=== PATIENT | female | born 1935 | race Caucasian/White ===

== ENCOUNTER → 2018-09-05 15:27 | Outpatient (CLI) | payer MEDICARE, SELFPAY ==
--- NOTE | 2018-09-05 | DI.CT.S_ITS ---
PROCEDURE: CT ABDOMEN WO CON INDICATIONS: Other specified diseases of pancreas, abnormal weight loss TECHNIQUE: After the administration of oral contrast, 5 mm thick sections acquired from the diaphragms to the iliac crests. 5 mm coronal and sagittal reformats were then performed. For radiation dose reduction, the following was used: automated exposure control, adjustment of mA and/or kV according to patient size. COMPARISON: [facility], CT, ABDOMEN WITHOUT CONTRAST, 09/23/2016, 12:34. FINDINGS: Image quality: Significantly degraded by absence of both oral and intravenous contrast. Lung bases: Lung bases are clear. Heart size is normal. Solid organs: Liver is normal in size. Gallbladder appears normal. Pancreas is normal in contours. Spleen is normal in size. No adrenal nodules. Both kidneys are normal in size, without hydronephrosis or nephrolithiasis. There has been an interval mild reduction in size of the renal cortex on the right when compared to the similar CT from 09/23/16, but no hydronephrosis is currently seen bilaterally. Bilateral nonobstructive renal calculi are again noted, the largest of which is present on the left, within the lower third collecting system, measuring approximately 5 mm in maximal dimension. Peritoneum and bowel: Bowel loops demonstrate normal wall thickness and caliber. No free fluid or air. Nodes and vessels: No retroperitoneal or mesenteric adenopathy by size criteria. Aorta and inferior vena cava are normal in size. Bones: No suspicious bony lesions. No vertebral body compression fractures. Miscellaneous: No ventral hernias. IMPRESSION: Quality of visualization is quite limited by absence of both oral and intravenous contrast. No CT evidence of acute or chronic pancreatitis is currently found. A mass lesion is not identified involving the pancreas or the adjacent soft tissues. There has been mild interval worsening of right-sided renal cortical atrophy, and no change in the previously present bilateral nonobstructive renal calculi seen at the upper third medial calyx on the right and the lower third lateral calyx on the left. Dictated by: Juan De La Cruz M.D. on 09/05/2018 at 16:13 Approved by: Juan De La Cruz M.D. on 09/05/2018 at 16:16
== END ==
PROVIDERS: PCP Family Medicine; Visit Provider Family Medicine
DX: K86.89 Other specified diseases of pancreas (principal); R63.4 Abnormal weight loss; N20.0 Calculus of kidney
CPT/HCPCS: 74150